=== PATIENT | male | born 1970 | race Caucasian/White ===

== ENCOUNTER 2016-12-11 10:33 | Emergency (ER) | payer OTHER ==
[~2016-12-11] VITALS: Ht 180.3 cm; Wt 127.0 kg
[~2016-12-11 10:33] MED LIST: ACETAMINOPHEN325 M1 PO; ASPIRIN325; AUGMENTIN 875875 MG PO; COUMADIN 5 MG TA5 M1 PO; ENOXAPARIN120 MG/0.8 SUBQ; FLEXERIL PO; HYDROCODON-ACE1 EAC7 PO; NAPROSYN500 MG PO; NOHOMEMEDICATIONS; NORCO 5-325 TA1 EACH PO
[2016-12-11] MEDS ORDERED: XARELTO20 MG PO (10:48)
[2016-12-11 11:19] LABS: HEMATOCRIT 45.9 % (42.0-52.0); HEMOGLOBIN 15.9 gm/dL (14.0-18.0); MCH 30.1 pg (26.0-34.0); MCHC 34.5 g/dL (28.0-37.0); MCV 87.1 fL (80.0-100.0); PLATELET COUNT 212 thou/uL (150-400); RBC 5.27 mil/uL (4.50-6.00); RDW 12.8 % (10.5-14.5); WBC 10.7 thou/uL (4.0-11.0)
[2016-12-11 11:26] LABS: MANUAL DIFF YES
[2016-12-11 11:30] LABS: CALCIUM 9.6 mg/dL (8.5-10.1); CREATININE 1.3 mg/dL (0.7-1.3); POTASSIUM 4.4 mmol/L (3.5-5.1)
[2016-12-11 11:34] LABS: ALBUMIN 4.3 g/dL (3.4-5.0); DIRECT BILIRUBIN 0.1 mg/dL (<0.1-0.3); TOTAL PROTEIN 8.5 g/dL (6.4-8.2)
[2016-12-11 12:21] LABS: URINE BLOOD TRACE (Negative); URINE COLOR YELLOW; URINE GLUCOSE-RANDOM* NEGATIVE (Negative); URINE KETONES NEGATIVE (Negative); URINE NITRITE NEGATIVE (Negative); URINE PROTEIN (DIPSTICK) TRACE (Negative); URINE SPECIFIC GRAVITY 1.025 (1.003-1.035); URINE UROBILINOGEN 0.2 E.U./dl (0.2-1.0)
[2016-12-11 12:24] LABS: ICTOTEST (BILI CONFIRMATORY) Negative (Negative); URINE BILIRUBIN NEGATIVE (Negative)
[2016-12-11 12:55] LABS: ABSOLUTE NEUTROPHILS 9.5 thou/uL (1.4-8.2); TOTAL CELL COUNT 100
[2016-12-11] MEDS ORDERED: ZOFRAN ODT4 MG PO (13:04)
[2016-12-11 13:20] VITALS: BP 113/64
== END 2016-12-11 13:21 | disposition home or self-care (01) ==
LOC: ER 10:33
PROVIDERS: Emergency Medicine
DX: R11.2 Nausea with vomiting, unspecified (principal); R19.7 Diarrhea, unspecified; F10.99 Alcohol use, unspecified with unspecified alcohol-induced disorder; Z86.718 Personal history of other venous thrombosis and embolism